=== PATIENT | female | born 1955 | race Caucasian/White ===

== ENCOUNTER 2018-07-26 15:41 | Emergency (ER) | payer OTHER ==
[2018-07-26 16:22] LABS: Basophils % (A) 0 %; Eosinophils # (A) 0.1 k/uL (0-0.7); Eosinophils % (A) 2 %; HGB 10.9 gm/dL (11.4-16.0); Hypochromasia Moderate; Lymphocytes # (A) 1.4 k/uL (1.0-4.8); Lymphocytes % (A) 24 %; MCH 25.5 pg (25.0-35.0); MCV 82.1 fL (80.0-100.0); Mean Platelet Volume 8.1; Monocytes # (A) 0.3 k/uL (0-1.0); Monocytes % (A) 4 %; Neutrophils # (A) 4.1 k/uL (1.3-7.7); Neutrophils % (A) 68 %; Platelet Count 227 k/uL (150-450); RBC 4.26 m/uL (3.80-5.40); RDW 14.8 % (11.5-15.5)
[2018-07-26 16:35] LABS: Albumin 3.7 g/dL (3.5-5.0); Calcium 9.1 mg/dL (8.4-10.2); Magnesium 1.9 mg/dL (1.6-2.3); Potassium 3.9 mmol/L (3.5-5.1); Total Bilirubin 0.3 mg/dL (0.2-1.3); Total Protein 6.4 g/dL (6.3-8.2)
[2018-07-26 16:36] LABS: Creatine Kinase 58 U/L (30-135)
[2018-07-26 16:49] LABS: INR 0.9 (<1.2); Prothrombin Time 9.6 sec (9.0-12.0)
[2018-07-26 16:50] LABS: Creatine Kinase MB 0.9 ng/mL (0.0-2.4); Troponin I <0.012 ng/mL (0.000-0.034)
--- NOTE | 2018-07-26 17:10 | XR ---
EXAMINATION TYPE: XR chest 2V DATE OF EXAM: 07/26/2018 COMPARISON: NONE HISTORY: Intermittent chest pain TECHNIQUE: Frontal and lateral views of the chest are obtained. FINDINGS: There is no heart failure nor confluent pneumonic infiltrate. There are calcified granulom laura at the pulmonary herrera. There is no pleural effusion. Thoracic aorta shows mild atheromatous vera e. Bony thorax is intact. IMPRESSION: No active cardiopulmonary disease. Old granulomatous disease.
--- NOTE | 2018-07-26 18:05 | ED ---
General Adult HPI - General Chief complaint: Chest Pain Stated complaint: Chest pain Time Seen by Provider: 07/26/18 17:34 Source: patient, family, RN notes reviewed Mode of arrival: wheelchair Limitations: no limitations - History of Present Illness Initial comments: Chief complaint history of present illness a 62-year-old female here with her granddaughter. The patient questionably on-again off-again anterior chest wall area discomfort that lasts from one to 2 seconds up to slightly longer. No associated sweats, no nausea, no vomiting no radiation. The patient reports when she raised her arms is morning she causes to happen once otherwise not always reproducible. On examination of bedside the patient was able to push on her chest wall found one spot that was very uncomfortable in the left lateral sternal area. Patient had an EKG done which showed normal sinus rhythm. Labs are drawn. - Related Data Home Medications Medication Instructions Recorded Confirmed Ibuprofen [Motrin Ib] 200 mg PO Q8HR 07/26/18 07/26/18 Previous Rx's Medication Instructions Recorded Ibuprofen [Motrin] 600 mg PO Q6HR PRN #12 tab 07/26/18 Allergies Allergy/AdvReac Type Severity Reaction Status Date / Time ciprofloxacin [From Cipro] Allergy Unknown Verified 07/26/18 18:48 peanut Allergy Unknown Verified 07/26/18 18:48 rofecoxib [From Vioxx] Allergy Rash/Hives Verified 07/26/18 18:48 strawberry Allergy Swelling Verified 07/26/18 18:48 Review of Systems ROS Statement: Those systems with pertinent positive or pertinent negative responses have been documented in the HPI. Review of systems. No headache at this time though she's had on-again off- again headaches. No visual acuity changes denies any GI/ problems no neuro deficits. She describes acute onset anterior chest wall discomfort that she can put 2 fingers on the anterior chest wall. It occurred this morning while lifting her arms. No radiation. No associated nausea vomiting or sweats. Patient denies any significant past medical problems. Denies any cardiac issues. Her surgeries include gastric bypass 13 years ago, bilateral ankle surgeries tubal ligation and surgery on her right elbow. Patient's family history significant for for heart disease with congestive heart failure. Patient denies ALLERGIES nonsmoker nondrinker. ROS Other: All systems not noted in ROS Statement are negative. Past Medical History Past Medical History: No Reported History History of Any Multi-Drug Resistant Organisms: None Reported Past Surgical History: Coronary Bypass/CABG, Orthopedic Surgery, Tubal Ligation Additional Past Surgical History / Comment(s): B ankle, R elbow, B foot Past Psychological History: No Psychological Hx Reported Smoking Status: Never smoker Past Alcohol Use History: None Reported Past Drug Use History: None Reported General Exam - General Exam Comments Initial Comments: General: The patient is awake and alert, in no distress, and does not appear acutely ill. Here because of occasional 1-2 second long chest pain episodes that are sharp in nature and then go away. No associated radiation. No sweats. Vital signs shows temperature 98.2 pulse 74 respiratory rate 18 pulse ox 99% room air blood pressure 154/86. Eye: Pupils are equal, round and reactive to light, extra-ocular movements are intact ; there is normal conjunctiva bilaterally. No signs of icterus. Ears, nose, mouth and throat: There are moist mucous membranes and no oral lesions. Neck: The neck is supple, there is no tenderness or JVD. No carotid bruit, no anterior cervical lymphadenopathy, thyroid not enlarged. Cardiovascular: There is a regular rate and rhythm. No murmur, rub or gallop is appreciated. Respiratory: Lungs are clear to auscultation, respirations are non-labored, breath sounds are equal. No wheezes, stridor, rales, or rhonchi. Abdomen patient to deep palpations on her own anterior chest wall she found one spot that recreated or reproduced the pain that that she experienced this morning while lifting her arms. Pain does not last very long sometimes only a several seconds. Denies any heavy lifting twisting turning or injuries. Gastrointestinal: Soft, non-distended, non-tender abdomen without masses or organomegaly noted. There is no rebound or guarding present. No CVA tenderness. Bowel sounds are unremarkable. Back: There is no tenderness to palpation in the midline. There is no obvious deformity. No rashes noted. Musculoskeletal: Normal ROM, no tenderness, There is no pedal edema. There is no calf tenderness or swelling. Sensation intact. Pulses equal bilaterally 2+. Neurological: CN II-XII intact, There are no obvious motor or sensory deficits. Coordination appears grossly intact. Speech is normal. Skin: Skin is warm and dry and no rashes or lesions are noted. No rashes noted early shingles was discussed. Psychiatric: Cooperative, Limitations: no limitations Course Vital Signs 07/26/18 07/26/18 15:49 19:13 Temperature 98.2 F 98.4 F Pulse Rate 74 61 Respiratory 18 17 Rate Blood Pressure 154/86 152/81 O2 Sat by Pulse 99 97 Oximetry EKG Findings - EKG Comments: EKG Findings:: Normal sinus rhythm no acute ST elevation or ectopy no ischemic changes. Rate 64 [place] interval was 146 QRS 88 QT [address] Portillo, no old EKG to compare to. Medical Decision Making - Medical Decision Making Medical decision making; this is a 62-year-old female reports that on-again off- again anterior chest wall pain just lateral to the sternum on the left side. Reproducible like occasionally when she lifts her arms or deep palpation. Denies any significant radiation. The patient's chest x-ray showed no active cardiopulmonary disease. Old granulomatous disease. As read by Dr. Frank labs show a white count of 6 hemoglobin 10.9 hematocrit of 35. INR 0.9 with a sugar of 132 troponin less than 0.012. Repeat troponin again was less than 0.012. EKG was done at 1557 and showed normal sinus rhythm no acute ectopy or ST elevation. Discussed the patient my skeletal skeletal strain costochondritis. The patient be advised to take Tylenol and/or ibuprofen for discomfort. The patient was told return emergency room if she has any acute changes. EKG was normal labs and normal. - Lab Data Result diagrams: 07/26/18 16:00 07/26/18 16:00 Lab Results 07/26/18 07/26/18 07/26/18 Range/Units 16:00 16:00 16:00 WBC 6.0 (3.8-10.6) k/uL RBC 4.26 (3.80-5.40) m/uL Hgb 10.9 L (11.4-16.0) gm/dL Hct 35.0 (34.0-46.0) % MCV 82.1 (80.0-100.0) fL MCH 25.5 (25.0-35.0) pg MCHC 31.0 (31.0-37.0) g/dL RDW 14.8 (11.5-15.5) % Plt Count 227 (150-450) k/uL Neutrophils % 68 % Lymphocytes % 24 % Monocytes % 4 % Eosinophils % 2 % Basophils % 0 % Neutrophils # 4.1 (1.3-7.7) k/uL Lymphocytes # 1.4 (1.0-4.8) k/uL Monocytes # 0.3 (0-1.0) k/uL Eosinophils # 0.1 (0-0.7) k/uL Basophils # 0.0 (0-0.2) k/uL Hypochromasia Moderate PT (9.0-12.0) sec INR (<1.2) APTT (22.0-30.0) sec Sodium 140 (137-145) mmol/L Potassium 3.9 (3.5-5.1) mmol/L Chloride 108 H (98-107) mmol/L Carbon Dioxide 26 (22-30) mmol/L Anion Gap 6 mmol/L BUN 12 (7-17) mg/dL Creatinine 0.85 (0.52-1.04) mg/dL Est GFR (CKD-EPI)AfAm 84 (>60 ml/min/1.73 sqM) Est GFR (CKD-EPI)NonAf 73 (>60 ml/min/1.73 sqM) Glucose 132 H (74-99) mg/dL Calcium 9.1 (8.4-10.2) mg/dL Magnesium 1.9 (1.6-2.3) mg/dL Total Bilirubin 0.3 (0.2-1.3) mg/dL AST 21 (14-36) U/L ALT 19 (9-52) U/L Alkaline Phosphatase 109 (38-126) U/L Total Creatine Kinase 58 (30-135) U/L CK-MB (CK-2) 0.9 (0.0-2.4) ng/mL CK-MB (CK-2) Rel Index 1.6 Troponin I <0.012 (0.000-0.034) ng/mL Total Protein 6.4 (6.3-8.2) g/dL Albumin 3.7 (3.5-5.0) g/dL 07/26/18 07/26/18 Range/Units 16:00 18:19 WBC (3.8-10.6) k/uL RBC (3.80-5.40) m/uL Hgb (11.4-16.0) gm/dL Hct (34.0-46.0) % MCV (80.0-100.0) fL MCH (25.0-35.0) pg MCHC (31.0-37.0) g/dL RDW (11.5-15.5) % Plt Count (150-450) k/uL Neutrophils % % Lymphocytes % % Monocytes % % Eosinophils % % Basophils % % Neutrophils # (1.3-7.7) k/uL Lymphocytes # (1.0-4.8) k/uL Monocytes # (0-1.0) k/uL Eosinophils # (0-0.7) k/uL Basophils # (0-0.2) k/uL Hypochromasia PT 9.6 (9.0-12.0) sec INR 0.9 (<1.2) APTT 22.0 (22.0-30.0) sec Sodium (137-145) mmol/L Potassium (3.5-5.1) mmol/L Chloride (98-107) mmol/L Carbon Dioxide (22-30) mmol/L Anion Gap mmol/L BUN (7-17) mg/dL Creatinine (0.52-1.04) mg/dL Est GFR (CKD-EPI)AfAm (>60 ml/min/1.73 sqM) Est GFR (CKD-EPI)NonAf (>60 ml/min/1.73 sqM) Glucose (74-99) mg/dL Calcium (8.4-10.2) mg/dL Magnesium (1.6-2.3) mg/dL Total Bilirubin (0.2-1.3) mg/dL AST (14-36) U/L ALT (9-52) U/L Alkaline Phosphatase (38-126) U/L Total Creatine Kinase (30-135) U/L CK-MB (CK-2) (0.0-2.4) ng/mL CK-MB (CK-2) Rel Index Troponin I <0.012 (0.000-0.034) ng/mL Total Protein (6.3-8.2) g/dL Albumin (3.5-5.0) g/dL Disposition Clinical Impression: Costochondritis, acute Disposition: HOME SELF-CARE Condition: Fair Instructions: Costochondritis (ED) Additional Instructions: Use Tylenol or ibuprofen for discomfort. Call follow up with your family doctor. If you don't have one and follow up with the on-call physician to the emergency room. He should be seen within the next several days to a week Prescriptions: Ibuprofen [Motrin] 600 mg PO Q6HR PRN #12 tab PRN Reason: Pain Is patient prescribed a controlled substance at d/c from ED?: No Referrals: None,Stated [Primary Care Provider] - 1-2 days Time of Disposition: 19:46
[2018-07-26 19:14] VITALS: BP 152/81; PULSE 61; RESP 17; TEMP 98.4
== END 2018-07-26 20:14 | disposition home or self-care (01) ==
LOC: EC 15:41
DX: M94.0 Chondrocostal junction syndrome [Tietze] (principal); Z95.1 Presence of aortocoronary bypass graft; Z79.1 Long term (current) use of non-steroidal anti-inflammatories (NSAID); Z88.1 Allergy status to other antibiotic agents; Z91.010 Allergy to peanuts; Z88.6 Allergy status to analgesic agent; Z91.018 Allergy to other foods
CPT/HCPCS: 36415; 71046; 80053; 82550; 82553; 83735; 84484; 85025; 85610; 85730; 93005; 99285

== ENCOUNTER 2023-01-27 09:38 | Emergency (ER) | payer MEDICARE, OTHER ==
[2023-01-27 11:07] LABS: Basophils % (A) 0 %; Eosinophils # (A) 0.1 k/uL (0-0.7); Eosinophils % (A) 2 %; HCT 41.6 % (34.0-46.0); HGB 13.1 gm/dL (11.4-16.0); Lymphocytes % (A) 18 %; MCH 29.5 pg (25.0-35.0); MCHC 31.6 g/dL (31.0-37.0); MCV 93.3 fL (80.0-100.0); Mean Platelet Volume 8.9; Monocytes # (A) 0.2 k/uL (0-1.0); Monocytes % (A) 4 %; Neutrophils % (A) 74 %; Platelet Count 162 k/uL (150-450); RBC 4.45 m/uL (3.80-5.40); RDW 13.3 % (11.5-15.5); WBC 5.5 k/uL (3.8-10.6)
[2023-01-27 11:18] LABS: ALT 21 U/L (4-34); AST 32 U/L (14-36); African American GFR (CKD) >90 (>60 ml/min/1.73 sqM); Albumin 4.1 g/dL (3.5-5.0); Alkaline Phosphatase 93 U/L (38-126); Anion Gap 7 mmol/L; Blood Urea Nitrogen 14 mg/dL (7-17); Carbon Dioxide 28 mmol/L (22-30); Chloride 106 mmol/L (98-107); Glucose 97 mg/dL (74-99); Non-African American GFR(CKD) >90 (>60 ml/min/1.73 sqM); Sodium 141 mmol/L (137-145); Total Bilirubin 0.6 mg/dL (0.2-1.3); Total Protein 6.7 g/dL (6.3-8.2)
--- NOTE | 2023-01-27 12:20 | CT ---
EXAMINATION TYPE: CT brain cspine wo con, CT facial bones wo con DATE OF EXAM: 01/27/2023 COMPARISON: None HISTORY: 67-year-old female Right sided facial pain, down back of neck (accession [id number]), Right si ded facial pain into right ear (accession [id number]) CT DLP: 1175.8 (accession [id number]), Included in brain-cspine (accession [id number]) mGycm Automated exposure control for dose reduction was used. Technique: Examination of the head was done in axial plane without intravenous contrast. Coronal and sagittal reconstructions performed. CT of the cervical spine was obtained in axial plane without intravenous injection of contrast mater ial. Coronal and sagittal reformatted images were obtained from the axial views for evaluation of f ractures, spinal alignment and canal. CT of the facial bones without contrast. Coronal and sagittal reconstructions performed. FINDINGS: Head: There is no evidence of acute intracranial hemorrhage, acute ischemic changes, mass, mass-effect, or extra-axial fluid collection. There is no effacement of cerebral sulci or basal subarachnoid cister ns. There is no hydrocephalus. There is no midline shift. Metz-white matter distinction is preserv ed. Mastoid air cells well pneumatized. Cervical spine: There is eccentric enlargement of the left lingual tonsils effacing the left vallecular space, axial image 42 for which direct visualization can be performed to exclude a mucosal lesion. No craniocervical junction abnormality, predental space widening, or prevertebral soft tissue swellin g. Moderate to advanced multilevel spondylotic change. Disc osteophyte complexes may contribute to moder ate, possibly moderate to severe spinal canal stenoses such as a C3-C7 levels. Trace grade 1 retrolisthesis C3-C4 and C4-C5. There is grade 1 anterolisthesis C7-T1. Multilevel facet and uncovertebral joint arthropathy is present. No acute fracture of the cervical spine. Variable moderate bilateral neural foraminal stenoses. Facial bones: Chronic blowout fracture medial left orbital wall. Orbits and globes are otherwise intact. Mild mucosal thickening floor of the left maxillary sinus. Trace mucosal thickening ethmoid air cell s. Rightward nasal septal deviation. The mandible, TMJ's, zygomatic arches, pterygoid plates are intact. Some degenerative change at the r ight TMJ noted. The nasal bones are intact. No acute facial bone fracture seen. COMBINED IMPRESSION: 1. No acute intracranial abnormality seen. 2. No acute fracture of the cervical spine. Moderate to advanced multilevel spondylotic change. Dege nerative grade 1 spondylolisthesis C3-C4, C4-C5, C7-T1. Possible underlying moderate to severe spinal canal stenosis at a few levels. 3. No acute facial bone fracture seen. 4. ENT referral to further assess the asymmetric left lingual tonsillar hypertrophy. Exclude an unde rlying mucosal lesion.
[2023-01-27] MEDS ORDERED: IBUPROFEN 800 MG TAB PO STA (12:37)
--- NOTE | 2023-01-27 12:37 | ED ---
General Adult HPI - General Chief complaint: Skin/Abscess/Foreign Body Stated complaint: Pain Right Side of Head with Bump Time Seen by Provider: 01/27/23 10:08 Source: patient, RN notes reviewed Mode of arrival: ambulatory Limitations: no limitations - History of Present Illness Initial comments: 67-year-old female with no significant past medical history presents to the emergency department with a bump on her right eye. She reports she no ticed the lump 3 days ago. She denies any injury or trauma. It is tender. It is causing a right-sided headache. That radiates down to her neck. She denies any dizziness, lightheadedness, vision loss, vision changes, nausea, vomiting. She was evaluated by the lead java software engineer prior to arrival who had an unremarkable exam and recommended she be evaluated in urgent care who sent her to the emergency department for further evaluation. - Related Data Home Medications Medication Instructions Recorded Confirmed Ibuprofen [Motrin Ib] 200 mg PO Q8HR 07/26/18 07/26/18 Previous Rx's Medication Instructions Recorded Ibuprofen [Motrin] 600 mg PO Q6HR PRN #12 tab 07/26/18 Cephalexin [Keflex] 500 mg PO Q6HR #40 cap 01/27/23 Ibuprofen [Motrin] 800 mg PO Q6HR #30 tab 01/27/23 Allergies Allergy/AdvReac Type Severity Reaction Status Date / Time ciprofloxacin [From Cipro] Allergy Unknown Verified 01/27/23 09:46 peanut Allergy Unknown Verified 01/27/23 09:46 rofecoxib [From Vioxx] Allergy Rash/Hives Verified 01/27/23 09:46 strawberry Allergy Swelling Verified 01/27/23 09:46 Review of Systems ROS Statement: Those systems with pertinent positive or pertinent negative responses have been documented in the HPI. ROS Other: All systems not noted in ROS Statement are negative. Past Medical History Past Medical History: No Reported History History of Any Multi-Drug Resistant Organisms: None Reported Past Surgical History: Coronary Bypass/CABG, Orthopedic Surgery, Tubal Ligation Additional Past Surgical History / Comment(s): B ankle, R elbow, B foot Past Psychological History: No Psychological Hx Reported Smoking Status: Never smoker Past Alcohol Use History: Rare Past Drug Use History: None Reported General Exam - General Exam Comments Initial Comments: General: Alert, in no acute distress Head: atraumatic normocephalic. Eyes PERRL, EOMI intact, mucous membranes moist , 1 cm roung mildly tender lesion, mobile to right eyebrow Respiratory: Lungs clear to auscultation bilaterally Cardiovascular: Heart rate regular rate and rhythm Abdominal: Soft without guarding or rebound Extremities: Normal inspection with full range of motion and normal capillary refill Neuroogic: alert and oriented 3, CN II-XII intact, able to ambulate with steady gait Skin: warm dry and intact with normal color Limitations: no limitations Course Vital Signs 01/27/23 01/27/23 09:42 12:55 Temperature 97.5 F L 97.6 F Pulse Rate 58 L 51 L Respiratory 20 16 Rate Blood Pressure 142/80 136/76 O2 Sat by Pulse 100 99 Oximetry Medical Decision Making - Medical Decision Making Was pt. sent in by a medical professional or institution (, PA, JUVENILE DETENTION OFFICER, urgent care, hospital, or longterm...) When possible be specific @ -[No] Did you speak to anyone other than the patient for history (EMS, parent, family, police, friend...)? What history was obtained from this source @ -[No] Did you review nursing and triage notes (agree or disagree)? Why? @ -[I reviewed and agree with nursing and triage notes] Were old charts reviewed (outside hosp., previous admission, EMS record, old EKG, old radiological studies, urgent care reports/EKG's, longterm records)? Report findings @ -[No old charts were reviewed] Differential Diagnosis (chest pain, altered mental status, abdominal pain women, abdominal pain men, vaginal bleeding, weakness, fever, dyspnea, syncope, headache, dizziness, GI bleed, back pain, seizure, CVA, palpatations, mental health, musculoskeletal)? @ -[not applicable] EKG interpreted by me (3pts min.). @ -[As above] X-rays interpreted by me (1pt min.). @ -[None done] CT interpreted by me (1pt min.). @ -CT is negative for any intracranial process U/S interpreted by me (1pt. min.). @ -[None done] What testing was considered but not performed or refused? (CT, X-rays, U/S, labs)? Why? @ -[None] What meds were considered but not given or refused? Why? @ -[None] Did you discuss the management of the patient with other professionals (professionals i.e. , PA, JUVENILE DETENTION OFFICER, lab, RT, psych nurse, social sciences department chair, laborer gold leaf, teacher, information technology officer, major case detective)? Give summary @ -[No] Was smoking cessation discussed for >3mins.? @ -[No] Was critical care preformed (if so, how long)? @ -[No] Were there social determinants of health that impacted care today? How? (Homelessness, low income, unemployed, alcoholism, drug addiction, transportation, low edu. Level, literacy, decrease access to med. care, half-way, rehab)? @ -[No] Was there de-escalation of care discussed even if they declined (Discuss DNR or withdrawal of care, Hospice)? DNR status @ -[No] What co-morbidities impacted this encounter? (DM, HTN, Smoking, COPD, CAD, Cancer, CVA, ARF, Chemo, Hep., AIDS, mental health diagnosis, sleep apnea, morbid obesity)? @ -[None] Was patient admitted / discharged? Hospital course, mention meds given and route, prescriptions, significant lab abnormalities, going to OR and other pertinent info. @ -Discharged. This is a pleasant 57-year-old female presents to the emergency department with a chief complaint of right lumbar right eye. Physical exam performed while in the ED. Physical exam reveals a 1 year circular lesion to right eyebrow that is mobile and mildly tender. No discharge noted. Patient had lab work and imaging performed within essentially unremarkable. I discussed the results in detail with the patient verbalized understanding and all questions were addressed. Return precautions were discussed at length. She will be discharged home in stable condition. Case discussed with GARRY Toth who agrees with plan of care. Undiagnosed new problem with uncertain prognosis? @ -[No] Drug Therapy requiring intensive monitoring for toxicity (Heparin, Nitro, Insulin, Cardizem)? @ -[No] Were any procedures done? @ -[No] Diagnosis/symptom? @ Right eyebrow lump Acute, or Chronic, or Acute on Chronic? @ -Acute Uncomplicated (without systemic symptoms) or Complicated (systemic symptoms)? @ -Uncomplicated Side effects of treatment? @ -[No] Exacerbation, Progression, or Severe Exacerbation? @ -[No] Poses a threat to life or bodily function? How? (Chest pain, [place], [place], pneumonia, PE, COPD, DKA, ARF, appy, cholecystitis, CVA, Diverticulitis, Homicidal, Suicidal, threat to staff... and all critical care pts) @ -Low likelihood - Lab Data Result diagrams: 01/27/23 10:36 01/27/23 10:36 Lab Results 01/27/23 01/27/23 Range/Units 10:36 10:36 WBC 5.5 (3.8-10.6) k/uL RBC 4.45 (3.80-5.40) m/uL Hgb 13.1 (11.4-16.0) gm/dL Hct 41.6 (34.0-46.0) % MCV 93.3 (80.0-100.0) fL MCH 29.5 (25.0-35.0) pg MCHC 31.6 (31.0-37.0) g/dL RDW 13.3 (11.5-15.5) % Plt Count 162 (150-450) k/uL MPV 8.9 Neutrophils % 74 % Lymphocytes % 18 % Monocytes % 4 % Eosinophils % 2 % Basophils % 0 % Neutrophils # 4.0 (1.3-7.7) k/uL Lymphocytes # 1.0 (1.0-4.8) k/uL Monocytes # 0.2 (0-1.0) k/uL Eosinophils # 0.1 (0-0.7) k/uL Basophils # 0.0 (0-0.2) k/uL Sodium 141 (137-145) mmol/L Potassium 4.0 (3.5-5.1) mmol/L Chloride 106 (98-107) mmol/L Carbon Dioxide 28 (22-30) mmol/L Anion Gap 7 mmol/L BUN 14 (7-17) mg/dL Creatinine 0.55 (0.52-1.04) mg/dL Est GFR (CKD-EPI)AfAm >90 (>60 ml/min/1.73 sqM) Est GFR (CKD-EPI)NonAf >90 (>60 ml/min/1.73 sqM) Glucose 97 (74-99) mg/dL Calcium 9.0 (8.4-10.2) mg/dL Total Bilirubin 0.6 (0.2-1.3) mg/dL AST 32 (14-36) U/L ALT 21 (4-34) U/L Alkaline Phosphatase 93 (38-126) U/L Total Protein 6.7 (6.3-8.2) g/dL Albumin 4.1 (3.5-5.0) g/dL Disposition Clinical Impression: Eye lump Disposition: HOME SELF-CARE Condition: Stable Additional Instructions: Please monitor symptoms closely please return to the nearest emergency department if symptoms worsen or persist Prescriptions: Cephalexin [Keflex] 500 mg PO Q6HR #40 cap Ibuprofen [Motrin] 800 mg PO Q6HR #30 tab Is patient prescribed a controlled substance at d/c from ED?: No Referrals: None,Stated [REFERRING] - 1-2 days Elías Koroma MD [STAFF PHYSICIAN] - 1-2 days Marshall Tadeo MD [STAFF PHYSICIAN] - 1-2 days Time of Disposition: 12:39
[2023-01-27 12:57] VITALS: BP 136/76; PULSE 51; RESP 16; TEMP 97.6
== END 2023-01-27 12:57 | disposition home or self-care (01) ==
LOC: EC 09:38
DX: H02.823 Cysts of right eye, unspecified eyelid (principal); M43.12 Spondylolisthesis, cervical region; Z91.018 Allergy to other foods; Z88.8 Allergy status to other drugs, medicaments and biological substances
CPT/HCPCS: 36415; 70450; 70486; 72125; 80053; 85025; 99284